=== PATIENT | female | born 1990 | race Hispanic/Latino ===

== ENCOUNTER 2017-06-17 20:41 | Emergency (ER) | payer BC ==
[2017-06-17 20:59] VITALS: BMI 25.0
[2017-06-17 21:27] LABS: SQUAMOUS EPITHIAL 1 /hpf (0-5); URINE BACTERIA RARE (<OCC); URINE BILIRUBIN NEGATIVE (NEGATIVE); URINE BLOOD NEGATIVE (NEGATIVE); URINE CLARITY SLIGHTY-CLOUDY (Clear); URINE COLOR YELLOW (YELLOW); URINE GLUCOSE (UA) NEG (Normal); URINE LEUKOCYTE ESTERASE NEG Leu/uL (Negative); URINE PROTEIN NEGATIVE (NEGATIVE); URINE UROBILINOGEN 0.2-1.0 mg/dL (0.2-1.0)
--- NOTE | 2017-06-17 22:15 | OBDCSUM ---
Datetime: 06/17/2017 22:01 Discharged to, Provider: Home Follow up at, Provider: dr louise Disch Instr Activity: Normal activity Disch Instr Diet: Regular Discharge Diagnosis, Provider: Saeed Labor - Undelivered Discharge Time: 06/17/2017 22:02 Follow up in weeks, Provider: on 06/23/17 Disch Referrals: None
--- NOTE | 2017-06-17 22:15 | OBHP ---
Datetime: 06/17/2017 21:38 IP Adm Impression: Term, intrauterine ; No Active Labor; Intact Membranes IP Chief Complaint Other: urinary IP Admit Plan: Discharge home Admit Comment, IP Provider: 27 yo with IUP at 40+2 weeks, SUSAN of 06/14/17 presented to [facility] after noticing pink tinged urine at home. Denies vaginal bleeding, denies contractions, denies suspected r upture of membranes. Reports good movement. ROS: denies headache, blurry vision, chest pain, dyspnea, nausea, vomiting, burning w/ urination. care: Dr. Denise Becker; last office visit was this afternoon. Pt states u/s was done, fet us was vertex presentation, and that the amount of amniotic fluid was normal. Past OBGYNhx: no abnormal PAP, no hx STI Past Med hx: no chronic conditions Past Surg hx: wisdom teeth removal Socialhx: denies tobacco, alcohol, drug use Fam hx: diabetes Allergies: NKDA Meds: PNV BP: FHR: 130s, + accels SSE: closed os, clear cervical discharge. Sample collected on slide for examination under [employer] pe. A: 27 yo with IUP at 40+2 weeks; no sign of active labor at this time P: Urinalysis; cervical discharge slide. 22:00 Urinalysis neg for protein, blood, glucose No ferning visualized on slide with cervical discharge; rupture of mebranes unlikely at this time Follow up in office w/ Dr. Becker at next scheduled visit on Friday 06/23; return if signs of la bor occur, labor precautions. Pt examined/discussed w/ Dr. Bernard. [email or web address] Extremities - PN: Normal Abdomen - PN: Normal Lungs - PN: Normal Heart - PN: Normal Neurologic - PN: Normal HEENT - PN: Normal General - PN: Normal Presentation-Admit: Vertex FHR - Baseline A Provider: 130 Membranes, Provider: Intact Pool Provider: Negative Nitrazine Provider: Negative Ferning Provider: Negative IP Hx Assessment: The History has been Reviewed and is Current EGA AdmitDate IP: 40.4 Vital Signs Provider: Reviewed IP Chief Complaint: Other NICHD Variability Prov Fetus A: Moderate 6-25bpm NICHD Accel Fetus A IP Provider: 15X15 FHR Category Provider Fetus A: Category I NICHD Decel Fetus A IP Provider: None Dilatation, Provider: 0
[2017-06-18 05:04] VITALS: BP 105/69; PULSE 90; RESP 18; TEMP 98.3; O2SAT 100
== END 2017-06-17 22:10 | disposition home or self-care (01) ==
LOC: H.EROB2 20:41
DX: O99.89 Other specified diseases and conditions complicating pregnancy, childbirth and the puerperium (principal); R31.9 Hematuria, unspecified; Z3A.40 40 weeks gestation of pregnancy; O48.0 Post-term pregnancy; O47.1 False labor at or after 37 completed weeks of gestation

== ENCOUNTER 2017-06-18 17:21 | Inpatient (IN) | payer BC ==
[2017-06-18 18:29] VITALS: BMI 25.7
[2017-06-18] MEDS ORDERED: Lactated Ringer's 1,000 ML IV SCH (18:30)
[2017-06-18] MEDS ORDERED: Oxytocin 30 units/LR 500ML 30 UNITS/500 ML BAG IV SCH (18:45)
[2017-06-18] MEDS: Lactated Ringer's 1,000 ML IV SCH ×2 (19:00→19:37)
[2017-06-18 19:22] LABS: BASO # 0.1 K/uL (0.0-0.2); BASO % 0.7 % (0.0-2.0); EOS % 0.1 % (0.0-4.0); LYMPH # 1.3 K/uL (1.0-4.3); LYMPH % 5.9 % (20.0-40.0); MEAN CELL VOLUME 97.5 fl (81.0-99.0); MEAN CORPUSCULAR HEMOGLOBIN 32.6 pg (27.0-31.0); MEAN CORPUSCULAR HGB CONC 33.5 g/dL (33.0-37.0); MEAN PLATELET VOLUME 9.5 fl (7.2-11.7); MONO # 1.2 K/uL (0.0-0.8); MONO % 5.6 % (0.0-10.0); NEUT # 18.5 K/uL (1.8-7.0); NEUT % 87.7 % (50.0-75.0); PLATELET COUNT 241 K/uL (130-400); RED CELL DISTRIBUTION WIDTH 13.9 % (11.5-14.5); WHITE BLOOD COUNT 21.1 K/uL (4.8-10.8)
[2017-06-18] MEDS ORDERED: Fentanyl/Bupivacaine HCl 250 ML EPI ONE (19:54)
[2017-06-18] MEDS ORDERED: Bupivacaine HCl 0.25% PF (10 ml) Inj ONE (19:55)
[2017-06-18 20:26] LABS: BANDS 1 % (0-2); LYMPHOCYTE 9 % (20-50); MONOCYTE 2 % (0-10); MYELOCYTE 1 % (0-0); NEUTROPHIL 87 % (42-75); PLATELET ESTIMATE NORMAL (NORMAL); TOTAL CELLS COUNTED 100
--- NOTE | 2017-06-18 22:43 | OBHP ---
Datetime: 06/18/2017 18:51 IP Adm Impression: Term, intrauterine IP Admit Plan: Admit to unit; Initiate labor protocol Admit Comment, IP Provider: Pt is a 27 y/o female G1PO with IUP 40.3wks (SUSAN 06/15) presenting to OB ED with LOF at 2pm and CTX q 4-5min. PT was seen and evaluated in [facility] yesterday for scant vaginal bl eeding, cervix was closed and ferns test was negative. Pt denies any headache, n/v, dysuria, cp, sob. +FM OBGYN: Dr. Becker, Pb PNC: GBS negative, O negative, recieved Rhogam at 28 weeks. Otherwise unremarkable. Last U/S 06/17 - Cephalic presentation OB Hx: denies PMHX: denies Medications: denies NKDA Denies habits x 3 Vitals: 104/64, HR 77 PE: General: NAD Cardiac: RRR, no murmurs Pulm: CTABL, no wheezing Abdomen: Gravid, NT Speculum: +pooling, nitrazine + Cervical exam: 4cm, 50% effaced, -2 station FHR 130, reactive Assessment: IUP 40.3wks, SROM, active labor Plan: Admit to Labor and Delivery. CBC, Type and Screen, IV hydration. Continuous monitoring . Monitor for progression of labor. Will need Rhogam within 72 hours of delivery if baby is RH + Discussed case with Dr. Becker PGY1 Mark The patient was ssen with the resident I agree with the note EGA AdmitDate IP: 40.3 Vital Signs Provider: Reviewed IP Chief Complaint: Uterine contractions; Suspected ruptured membranes
--- NOTE | 2017-06-18 22:46 | OBADHP ---
Datetime: 06/18/2017 18:51 Admit Comment, IP Provider: Pt is a 27 y/o female G1PO with IUP 40.3wks (SUSAN 06/15) presenting to OB ED with LOF at 2pm and CTX q 4-5min. PT was seen and evaluated in [facility] yesterday for scant vaginal bl eeding, cervix was closed and ferns test was negative. Pt denies any headache, n/v, dysuria, cp, sob. +FM OBGYN: Dr. Becker, [facility] PNC: GBS negative, O negative, recieved Rhogam at 28 weeks. Otherwise unremarkable. Last U/S 06/17 - Cephalic presentation OB Hx: denies PMHX: denies Medications: denies NKDA Denies habits x 3 Vitals: 104/64, HR 77 PE: General: NAD Cardiac: RRR, no murmurs Pulm: CTABL, no wheezing Abdomen: Gravid, NT Speculum: +pooling, nitrazine + Cervical exam: 4cm, 50% effaced, -2 station FHR 130, reactive Assessment: IUP 40.3wks, SROM, active labor Plan: Admit to Labor and Delivery. CBC, Type and Screen, IV hydration. Continuous monitoring . Monitor for progression of labor. Will need Rhogam within 72 hours of delivery if baby is RH + Discussed case with Dr. Becker PGY1 Mark The patient was ssen with the resident I agree with the note Vital Signs Provider: Reviewed IP Chief Complaint: Uterine contractions; Suspected ruptured membranes EGA AdmitDate IP: 40.3 IP Adm Impression: Term, intrauterine IP Admit Plan: Admit to unit; Initiate labor protocol Datetime: 06/17/2017 21:38 IP Chief Complaint Other: urinary Extremities - PN: Normal Abdomen - PN: Normal Lungs - PN: Normal Heart - PN: Normal Neurologic - PN: Normal HEENT - PN: Normal General - PN: Normal Presentation-Admit: Vertex FHR - Baseline A Provider: 130 Membranes, Provider: Intact Pool Provider: Negative Nitrazine Provider: Negative Ferning Provider: Negative IP Hx Assessment: The History has been Reviewed and is Current NICHD Variability Prov Fetus A: Moderate 6-25bpm NICHD Accel Fetus A IP Provider: 15X15 FHR Category Provider Fetus A: Category I NICHD Decel Fetus A IP Provider: None Dilatation, Provider: 0
[2017-06-19] MEDS ORDERED: Lidocaine 2% PF (10 ml) Amp ONE (00:19)
[2017-06-19 01:21] VITALS: RESP 18
[2017-06-19] MEDS ORDERED: Oxycodone/Acetaminophen 5/325 mg Tab PO PRN ×4 (04:44→05:26)
[2017-06-19] MEDS ORDERED: Benzocaine/Menthol SPRAY TOP PRN (04:44)
--- NOTE | 2017-06-19 04:45 | OBDS ---
DELIV[facility]ERSONNEL Delivery Doctor: Denise Becker MD Mri Assistant: Samara Green RN Anesthesiologist: Don Ferreira MD MATERNAL INFORMATION Delivery Anesthesia: Epidural Medications in Delivery: Pitocin Estimated Blood Loss (ml): 150 Placenta Cultured: No Maternal Complications: None Provider Comments: Delivered live baby boy at 421 the baby was bulb suctioned on the perineum and tr ansferred to the maternal chest. The cord was clamped and cut 3 vessels noted cord blood was obtained and sent to the lab. The blue placenta was delivered at 4:26 AM intact, the estimated blood loss was 150 mL. There was a first-degree vaginal laceration which was repaired with 2-0 Rapide. The mother t olerated the procedure well and the baby was a well baby nursery with Apgars of 9 and 9 weighing 3490 g LABOR SUMMARY EDC: 06/15/2017 00:00 No. Babies in Womb: 1 Attempted: No Labor Anesthesia: Epidural LABOR INFORMATION Reason for Induction: Not Applicable Onset of Labor: 06/18/2017 13:45 Complete Dilatation: 06/19/2017 03:08 Oxytocin: N/A Group B Beta Strep: Negative Antibiotics # of Doses: 0 Antibiotics Time of Last Dose: n/a Steroids Given: None Reason Steroids Not Administered: Not Applicable MEMBRANES Membranes Rupture Method: Spontaneous Rupture of Membranes: 06/18/2017 13:45 Length of Rupture (hrs): 14.60 Amniotic Fluid Color: Clear Amniotic Fluid Amount: Small Amniotic Fluid Odor: Normal STAGES OF LABOR Stage 1 hrs: 13 Stage 1 min: 23 Stage 2 hrs: 1 Stage 2 min: 13 Stage 3 hrs: 0 Stage 3 min: 5 Total Time in Labor hrs: 14 Total Time in Labor min: 41 VAGINAL DELIVERY Episiotomy: None Laceration Extension: First Degree Laceration Type: Vaginal Laceration Repair: Yes Initial Vag Sponge Count: 5 Final Vag Sponge Count: 5 Initial Vag Sharps Count: 1 Final Vag Sharps Count: 1 Sponge Count Correct: Yes Sharps Count Correct: Yes Count Comment: count correct BABY A INFORMATION Delivery Date/Time: 06/19/2017 04:21 Method of Delivery: Vaginal Born in Route : No : N/A Forceps: N/A Vacuum Extraction: N/A Shoulder Dystocia : No SHOULDER DYSTOCIA BABY A Delivery Date/Time: 06/19/2017 04:21 PRESENTATION/POSITION BABY A Presentation: Cephalic PLACENTA INFORMATION BABY A Placenta Delivery Time : 06/19/2017 04:26 Placenta Status: Delivered INFORMATION BABY A Gestational Age at Delivery: 40.4 Gestational Status: Term Infant Outcome : Liveborn Condition : Stable Sex: Male IDENTIFICATION/MEDS BABY A ID Band Number: [id number] ID Band Location: Left Leg; Left Arm CORD INFORMATION BABY A No. Cord Vessels: 3 Nuchal Cord Other: body x1 Cord Blood Taken: Yes
[2017-06-19] MEDS: Benzocaine/Menthol SPRAY TOP PRN (19:54)
[2017-06-20 06:07] LABS: HEMOGLOBIN 12.3 g/dL (12.0-16.0); MEAN CELL VOLUME 98.9 fl (81.0-99.0); MEAN CORPUSCULAR HEMOGLOBIN 33.1 pg (27.0-31.0); MEAN CORPUSCULAR HGB CONC 33.4 g/dL (33.0-37.0); RBC 3.71 Mil/uL (3.80-5.20); RED CELL DISTRIBUTION WIDTH 13.9 % (11.5-14.5); WHITE BLOOD COUNT 17.6 K/uL (4.8-10.8)
--- NOTE | 2017-06-20 10:07 | OBPPN ---
Datetime: 06/19/2017 10:02 PP Pain Prov: Within normal limits PP Nausea Prov: Denies PP Flatus Prov: Yes PP BM Prov: Yes PP Breasts Prov: Normal PP Heart Prov: Normal PP Lungs Prov: Normal PP Abdomen/Uterus Prov: Normal PP Lochia Prov: Normal PP Vulva/Perineum Prov: Normal PP CVA Tenderness Prov: Normal PP Extremities Prov: Normal PP Comments Phys Exam Prov: Abdomen soft, nontender, nondistended Uterus firm, below umbilicus No deep Tenderness bilaterally PP Impression Prov: Normal progression PP Plan Prov: Continue present management PP Progress Note Prov: day #1 status post , patient recovering well Regular diet Pain control Ambulate Anticipate discharge home tomorrow IP PP Procedures: None Vital Signs Provider PP: Reviewed; Within Normal Limits
--- NOTE | 2017-06-20 15:01 | OBPPN ---
Datetime: 06/20/2017 14:42 PP Pain Prov: Within normal limits PP Nausea Prov: Denies PP Flatus Prov: Yes PP Breasts Prov: Not Done PP Heart Prov: Normal PP Lungs Prov: Normal PP Abdomen/Uterus Prov: Normal PP Lochia Prov: Not Done PP Vulva/Perineum Prov: Not Done PP CVA Tenderness Prov: Normal PP Extremities Prov: Normal PP Impression Prov: Normal progression PP Progress Note Prov: Patient doing well and reports minimal lochia. Well-controlled breast-feeding Vital signs stable afebrile Uterus firm below the umbilicus Extremities no Homans day #1 Ambulating, regular diet, analgesics as needed, anticipate discharge in a.m. Vital Signs Provider PP: Reviewed (Annotations: Data stored by CPN on behalf of user)
[2017-06-21] MEDS: Benzocaine/Menthol SPRAY TOP PRN (07:45)
--- NOTE | 2017-06-21 10:38 | OBPPN ---
Datetime: 06/21/2017 10:34 PP Pain Prov: Within normal limits PP Nausea Prov: Denies PP Flatus Prov: Yes PP Breasts Prov: Normal PP Heart Prov: Normal PP Lungs Prov: Normal PP Abdomen/Uterus Prov: Normal PP Lochia Prov: Normal PP Vulva/Perineum Prov: Normal PP CVA Tenderness Prov: Normal PP Extremities Prov: Normal PP Progress Prov: Normal PP Comments Phys Exam Prov: Abd: Soft,NT,BS - present UT - Firm PP Impression Prov: Normal progression PP Plan Prov: Discharge PP Progress Note Prov: S/P , PPD #2 Clinically Stable. Plan: D/C Home. IP PP Procedures: Rhogam Vital Signs Provider PP: Reviewed
--- NOTE | 2017-06-21 10:38 | OBDCSUM ---
Datetime: 06/21/2017 10:36 Discharged to, Provider: Home Follow up at, Provider: Dr Becker Disch Instr Activity: Normal activity Disch Instr Diet: Regular Discharge Instructions, Provider: Routine instructions given Discharge Diagnosis, Provider: Term Delivered Discharge Time: 06/21/2017 10:36 Follow up in weeks, Provider: 4-6 weeks Disch Referrals: None Contraception discussed, Prov: Yes Discharge Comment, Provider: S/P Uncomplicated , Clinically Stable. Discharge Diagnosis Prov Other: S/P Uncomplicated , Clinically Stable.
[2017-06-21 19:15] VITALS: BP 109/61; PULSE 79; TEMP 98; O2SAT 99
== END 2017-06-21 12:42 | disposition home or self-care (01) | DRG 775 ==
LOC: H.EROB2 17:21 → H.L&D 18:29 → H.OB/GYN 06-19 06:15
PROVIDERS: ADMIT Obstetrics & Gynecology Gynecology; ATTEND Obstetrics & Gynecology Gynecology
PROC: 4A1HXCZ Monitoring of Products of Conception, Cardiac Rate, External Approach (ICD-10-PCS; 2017-06-18)
PROC: 10E0XZZ Delivery of Products of Conception, External Approach (ICD-10-PCS; principal; 2017-06-19)
PROC: 0HQ9XZZ Repair Perineum Skin, External Approach (ICD-10-PCS; 2017-06-19)
DX: O69.81X0 Labor and delivery complicated by cord around neck, without compression, not applicable or unspecified (principal); O70.0 First degree perineal laceration during delivery; Z37.0 Single live birth; Z3A.40 40 weeks gestation of pregnancy